=== PATIENT | female | born 1985 | race Caucasian/White ===

== ENCOUNTER 2019-02-07 03:43 | Emergency (ER) | payer SELFPAY ==
[2019-02-07] MEDS ORDERED: DIPHENHYDRAMINE HCL 50 MG/ML VIAL ONE (04:57)
[2019-02-07] MEDS ORDERED: METOCLOPRAMIDE HCL INJ/PF 10 MG/2 ML SDV ONE (04:57)
[2019-02-07] MEDS ORDERED: KETOROLAC TROMETHAMINE INJ/PF 30 MG/1 ML SDV IV ONE (06:25)
[2019-02-07] MEDS ORDERED: DEXAMETHASONE SOD PHOS INJ 10 MG/1 ML VIAL IV ONE (06:25)
[2019-02-07] MEDS ORDERED: CYCLOBENZAPRINE HCL 10 MG TABLET PO ONE (06:25)
--- NOTE | 2019-02-07 06:31 | ER Document Report ---
ED General - General Chief Complaint: Headache Stated Complaint: HEADACHE Time Seen by Provider: 02/07/19 06:24 TRAVEL OUTSIDE OF THE [place] IN LAST 30 DAYS: No - HPI Notes: Patient is a 33-year-old female that presents to the emergency department for chief complaint of headache. Patient reports left-sided headache that began 3 days ago. She states that it started in the left side of her neck and then radiated up the left side of her head to her left parietal region. The headache was constant for 2 days and then completely resolved yesterday. Patient states she had recurrence of the headache last night and it has been constant since last night. Her initial headache had which she describes as "kaleidoscope color changes" and paresthesias in the left arm that lasted for 10 to 15 seconds. She states she has not had the color changes or paresthesias with her current headache. She reports normal vision currently. She denies any fevers or chills. She does report nausea with vertigo symptoms. Her dizziness is worse when she moves her head left and right or sits up quickly. She reports having sinus congestion and a cold last week but states those symptoms have resolved. She denies any sinus pressure. She does state that her headache began after mowing her lawn with a push more. She denies other trauma or injury. Past Medical History: Asthma Past Surgical History: Negative Social History: Reviewed in chart Family History: Reviewed and noncontributory for presenting illness Allergies: Reviewed, see documented allergy list. REVIEW OF SYSTEMS: CONSTITUTIONAL : No fever No chills No diaphoresis No recent illness EENT: No vision changes No congestion No sore throat CARDIOVASCULAR: No chest pain No palpitations RESPIRATORY: No shortness of breath No cough No difficulty breathing GASTROINTESTINAL: No abdominal pain No nausea No vomiting No diarrhea GENITOURINARY: No dysuria No hematuria No difficulty urinating MUSCULOSKELETAL: No back pain No leg pain No arm pain SKIN: No rashes No lesions LYMPHATIC: No swollen, enlarged glands. NEUROLOGICAL: No lightheadedness headache No weakness No paresthesias PSYCHIATRIC: No anxiety No depression PHYSICAL EXAMINATION: Vital signs reviewed, nursing noted reviewed. GENERAL: Appears uncomfortable, well-nourished and in no acute distress. HEAD: Atraumatic, normocephalic. EYES: No nystagmus, eyes appear normal, extraocular movements intact, sclera anicteric, conjunctiva are normal. ENT: No temporal tenderness bilaterally, nares patent, oropharynx clear without exudates. Moist mucous membranes. NECK: Tenderness to palpation of the left occiput at insertion site of left paraspinal cervical muscles, mild left paraspinal muscle tenderness, no midline tenderness, normal range of motion, supple without lymphadenopathy LUNGS: Breath sounds clear to auscultation bilaterally and equal. No wheezes rales or rhonchi. HEART: Regular rate and rhythm without murmurs ABDOMEN: Soft, nontender, normoactive bowel sounds. No rebound, guarding, or rigidity. No masses appreciated. EXTREMITIES: Nontender, good range of motion, no pitting or edema. NEUROLOGICAL: Negative jolt sign, no focal neurological deficits. Moves all extremities spontaneously Motor and sensory grossly intact on exam. PSYCH: Normal mood, normal affect. SKIN: Warm, Dry, normal turgor, no rashes or lesions noted on exposed skin - Related Data Allergies/Adverse Reactions: No Known Allergies Allergy (Verified 04/27/14 18:50) Past Medical History - Social History Smoking Status: Never Smoker Family History: DM, Hypertension Pulmonary Medical History: Reports: Hx Asthma Psychiatric Medical History: Reports: Hx Depression Past Surgical History: Reports: Hx Appendectomy, Hx Gynecologic Surgery - D&C - Immunizations Hx Diphtheria, Pertussis, Tetanus Vaccination: Yes Physical Exam - Vital signs Vitals: Temp Pulse Resp BP Pulse Ox 97.5 F 93 28 H 156/112 H 96 02/07/19 03:58 02/07/19 03:58 02/07/19 03:58 02/07/19 03:58 02/07/19 03:58 Course - Re-evaluation Re-evalutation: 02/07/19 06:28 Vitals reviewed. Nursing notes reviewed. Patient had CTA of her head and cervical spine ordered in triage to evaluate for aortic dissection because of her complaint of left-sided neck pain and left-sided headache. CTA shows pansinusitis without intracranial process or dissection. Patient does not currently have sinus tenderness to percussion or sinus pressure to suggest an acute bacterial infection. She had minimal relief after IV fluids, Reglan and Benadryl and will be ordered Toradol, Flexeril, and Decadron for further headache management. 02/07/19 07:40 After further treatment patient states she is feeling much better. She is well- appearing and does not appear to be as uncomfortable as when she first presented to the ER. She states the pain is still present but very mild over her left parietal region. She has no focal neurologic deficits and is afebrile. She is otherwise hemodynamically stable. She will be referred to primary care for follow-up. She was counseled on staying well-hydrated as well as taking Tylenol and ibuprofen at home for symptoms. She is stable at time of discharge. - Vital Signs Vital signs: Temp Pulse Resp BP Pulse Ox 97.4 F 93 15 123/85 98 02/07/19 07:07 02/07/19 03:58 02/07/19 07:01 02/07/19 07:01 02/07/19 07:01 - Diagnostic Test Radiology reviewed: Image reviewed, Reports reviewed - EKG Interpretation by Me Additional EKG results interpreted by me: 02/07/19 06:30 Interpreted by myself [id number]: Normal sinus rhythm, rate 91, normal axis, no ectopy, no STEMI Discharge - Discharge Clinical Impression: Cephalgia Qualifiers: Headache type: unspecified Headache chronicity pattern: acute headache Intractability: not intractable Qualified Code(s): R51 - Headache Condition: Stable Disposition: HOME, SELF-CARE Instructions: Headache ([facility]) Additional Instructions: Please return to the emergency department if you have any worsening, or concern of your symptoms. Please return to the emergency department if you develop chest pain, difficulty breathing, severe abdominal pain, or ongoing vomiting. Please follow-up with your primary care physician in 2-3 days and any other recommended physicians. If prescribed, take all medications as directed. If you have any questions or concerns do not hesitate to return the emergency department for evaluation. Take Tylenol and ibuprofen at home for your headache Referrals: [facility] [Provider Group] - Follow up as needed
[2019-02-07 07:46] VITALS: BP 130/83
--- NOTE | 2019-02-07 08:42 | RADIOLOGY REPORT (SQ) ---
EXAM DESCRIPTION: CTA HEAD COMPLETED DATE/TIME: 02/07/2019 8:24 am REASON FOR STUDY: SEVERE HEADACHE NECK ACHE COMPARISON: None. TECHNIQUE: Post IV contrast scanning, thin section axial imaging through the brain to evaluate the a rterial structures. Source and MIP images are saved and reviewed on PACS. Advanced 3D imaging as volume-rendering, MIPs, SSD performed? yes All CT scanners at this facility use dose modulation, iterative reconstruction, and/or weight based d osing when appropriate to reduce radiation dose to as low as reasonably achievable (ALARA). [facility]: Dose Right [facility]: CareDose [facility]: Dose Right [facility]: Teradose 4D [facility]: Smart CoSchedule CONTRAST TYPE AND DOSE: Not reported. Please see technologist documentation. RENAL FUNCTION: None required. The patient is less than 50 years old. RADIATION DOSE: 1602 mGy cm LIMITATIONS: None. FINDINGS: [place]: The anterior, middle, posterior cerebral arteries are all patent. No ev idence of aneurysm or focal stenosis. POSTERIOR CIRCULATION: The distal vertebral arteries are patent as is the basilar artery. There is a left dominant vertebrobasilar system and partial persistent circulation of the gun examiner with robus t bilateral posterior communicating arteries. No aneurysm. BRAIN: No gross enhancing lesions as visualized. BONES: Intact as visualized. SINUSES: Mucosal thickening of the left sphenoid sinus and bilateral maxillary sinuses. OTHER: No other significant finding. IMPRESSION: 1. No intracranial aneurysm, stenosis, or occlusion. 2. Left sphenoid and bilateral maxillary sinus disease. TECHNICAL DOCUMENTATION: JOB ID: [id number] Quality ID # [id number]: Final reports with documentation of one or more dose reduction techniques (e.g., Au tomated exposure control, adjustment of the mA and/or kV according to patient size, use of iterative reconstruction technique) 2010 [employer]- All Rights Reserved Reading location - IP/workstation name: [email or web address]
--- NOTE | 2019-02-07 08:47 | RADIOLOGY REPORT (SQ) ---
EXAM DESCRIPTION: CTA NECK COMPLETED DATE/TIME: 02/07/2019 8:25 am REASON FOR STUDY: SEVERE HEADACHE NECK ACHE COMPARISON: None. TECHNIQUE: Axial dynamic scanning technique with dynamic contrast enhancement through the extra-scrap materials buyer nial carotid and vertebral arteries. Multiplanar reconstruction. 3-D MIPS and Volume-rendered imag es acquired at the workstation and saved to PACS. Images are reviewed in soft tissue, bone, lung w indows. All CT scanners at this facility use dose modulation, iterative reconstruction, and/or weight based d osing when appropriate to reduce radiation dose to as low as reasonably achievable (ALARA). [facility]: Dose Right [facility]: CareDose [facility]: Dose Right [facility]: Teradose 4D [facility]: [employer] RADIATION DOSE: 1602 mGy cm CONTRAST TYPE AND DOSE: Not reported. Please see technologist documentation. RENAL FUNCTION: None required. The patient is less than 50 years old. LIMITATIONS: None. FINDINGS: AORTIC ARCH: Normal three-vessel origin. Bilateral subclavian arteries are patent. No d issection. RIGHT CAROTIDS: Patent common, internal and external carotid arteries without suggestion of significa nt stenosis or irregular plaque. No dissection. Incidental note of a very medial, submucosal course of the distal common carotid artery, carotid bulb, and proximal internal carotid artery. RIGHT VERTEBRAL: Very diminutive although patent to the skullbase. The distal vertebral artery possi sonny terminates in plica. LEFT CAROTIDS: Patent common, internal and external carotid arteries without suggestion of significan t stenosis or irregular plaque. No dissection. LEFT VERTEBRAL: Patent. No dissection. OTHER: No other significant finding. OTHER: 3-D reconstructions confirm findings. IMPRESSION: 1. No dissection, stenosis, or occlusion of the cervical vasculature. Incidental varia nts noted, left dominant vertebral system and submucosal course of the right carotid system. 2. No CT findings to explain neck pain. COMMENT: Quality ID #[id number]: Measurements of distal internal carotid diameter were used as the denomina tor for stenosis measurement. TECHNICAL DOCUMENTATION: JOB ID: [id number] Quality ID # [id number]: Final reports with documentation of one or more dose reduction techniques (e.g., Au tomated exposure control, adjustment of the mA and/or kV according to patient size, use of iterative reconstruction technique) 2010 [employer]- All Rights Reserved Reading location - IP/workstation name: [email or web address]
--- NOTE | 2019-02-07 23:13 | EKG REPORT ---
SEVERITY:- BORDERLINE ECG - SINUS RHYTHM BORDERLINE PROLONGED QT INTERVAL : Confirmed by: Surinder Delgado 07-Feb-2019 23:11:27
== END 2019-02-07 07:49 | disposition home or self-care (01) ==
LOC: ER 03:43
DX: R51 Headache (principal); R42 Dizziness and giddiness; M54.2 Cervicalgia; R09.81 Nasal congestion; J45.909 Unspecified asthma, uncomplicated
CPT/HCPCS: 93005; 99284; 96361; 96374; 96375; 70496; 70498; 93010; J1885; J1100